=== PATIENT | male | born 1940 | race Caucasian/White ===

== ENCOUNTER 2017-07-04 14:45 | Emergency (ER) | payer MEDICARE, OTHER ==
--- NOTE | 2017-07-04 15:56 | RAD ---
CHEST TWO VIEWS: History: Cough. Comparison: 2006 FINDINGS: Chronic right sided pleural scarring, seen in 2006. Lungs are hyperinflated. No pneumothorax. Mild spondylotic changes of the thoracic spine. IMPRESSION: 1. Hyperinflation suggesting obstructive pulmonary disease. 2. Chronic white matter costophrenic focus scarring. POS: OFF
[2017-07-04 16:14] LABS: #Basophils 0.1 thou/uL (0.0-0.2); #Eosinphils 0.2 thou/uL (0.0-0.7); #Lymphocytes 1.2 thou/uL (1.20-3.40); #Neutrophils 5.6 thou/uL (1.40-6.50); %Basophils 0.6 % (0.0-1.0); %Eosinophils 1.9 % (0.0-10.0); %Lymphocytes 15.4 % (21.0-51.0); %Monocytes 12.7 % (0.0-10.0); Hematocrit 45.1 % (42.0-52.0); Mean Platelet Volume 5.9 fL (7.4-10.4); Red Blood Cell (RBC) Count 4.62 mill/uL (4.70-6.10); White Blood Cell (WBC) Count 8.1 thou/uL (4.8-10.8)
[2017-07-04 16:36] LABS: ALT (SGPT) 10 U/L (8-55); AST (SGOT) 23 U/L (5-34); Alkaline Phosphatase 79 U/L (40-150); Anion Gap 12 mmol/L (10-20); BUN (Urea Nitrogen) 12 mg/dL (8.4-25.7); Bilirubin, Total 0.5 mg/dL (0.2-1.2); Calc. Creatinine Clearance 0 mL/min (70-130); Calcium 9.4 mg/dL (7.8-10.44); Carbon Dioxide 29 mmol/L (23-31); Chloride 98 mmol/L (98-107); Estimated GFR-MDRD 83; Globulin 3.3 g/dL (2.4-3.5); Protein, Total 7.3 g/dL (5.8-8.1)
== END 2017-07-04 17:19 | disposition home or self-care (01) ==
LOC: ERS 14:45
DX: R05 Cough (principal); I10 Essential (primary) hypertension
CPT/HCPCS: 36415; 71020; 80053; 82553; 84484; 85025; 93005

== ENCOUNTER 2018-09-16 21:50 | Inpatient (IN) | payer MEDICARE, OTHER ==
--- NOTE | 2018-09-16 22:34 | RAD ---
RADIOGRAPH RIGHT HIP 2 VIEWS: 09/16/18 at 10:22 p.m. HISTORY: 78-year-old male with traumatic right hip pain due to fall. FINDINGS: There is diffuse, severe osteopenia, obscuring fine bony detail. There is an impacted right subcapita l femoral neck fracture. No dislocation. There is fracture of the right superior pubic ramus with dis placement, of indeterminate age. IMPRESSION: 1. Acute, traumatic, impacted right subcapital femoral neck fracture. 2. Displaced, traumatic, right superior pubic ramus fracture of indeterminate age. POS: [facility]
[2018-09-16 23:12] LABS: #Eosinphils 0.1 thou/uL (0.0-0.7); #Lymphocytes 0.8 thou/uL (1.20-3.40); #Neutrophils 11.6 thou/uL (1.40-6.50); %Basophils 0.2 % (0.0-1.0); %Eosinophils 0.6 % (0.0-10.0); %Lymphocytes 6.2 % (21.0-51.0); %Monocytes 7.5 % (0.0-10.0); %Neutrophils 85.5 % (42.0-75.0); Mean Corpuscular HGB CONC 34.2 g/dL (32.0-36.0); Mean Corpuscular Hemoglobin 32.2 pg (27.0-31.0); Mean Corpuscular Volume 94.1 fL (78.0-98.0); Mean Platelet Volume 6.3 fL (7.4-10.4); Platelet Count 294 thou/uL (130-400); RBC Distribution Width 12.5 % (11.5-14.5); Red Blood Cell (RBC) Count 4.64 mill/uL (4.70-6.10); White Blood Cell (WBC) Count 13.6 thou/uL (4.8-10.8)
[2018-09-16 23:17] LABS: Prothrombin Time 13.5 SEC (12.0-14.7)
--- NOTE | 2018-09-16 23:19 | RAD ---
PORTABLE CHEST: 09/16/18 HISTORY: Fall with injury. Lung scott are clear. Heart and mediastinum unremarkable. The visualized osseous structures appear i ntact. IMPRESSION: No acute abnormality identified. POS: [facility]
[2018-09-16 23:32] LABS: ALT (SGPT) 13 U/L (8-55); AST (SGOT) 24 U/L (5-34); Albumin 4.1 g/dL (3.4-4.8); Alkaline Phosphatase 72 U/L (40-150); Anion Gap 12 mmol/L (10-20); BUN (Urea Nitrogen) 17 mg/dL (8.4-25.7); Bilirubin, Total 0.5 mg/dL (0.2-1.2); Calc. Creatinine Clearance 0 mL/min (70-130); Calcium 9.7 mg/dL (7.8-10.44); Carbon Dioxide 25 mmol/L (23-31); Chloride 100 mmol/L (98-107); Estimated GFR-MDRD 70; Globulin 3.3 g/dL (2.4-3.5); Glucose 119 mg/dL (83-110); Protein, Total 7.4 g/dL (5.8-8.1); Sodium 133 mmol/L (136-145)
[2018-09-17] MEDS ORDERED: Dextrose 5% in Water 1,000 ML IV PRN
[2018-09-17] MEDS ORDERED: hydrALAZINE 20 MG/ML VIAL SLOW IVP PRN
[2018-09-17] MEDS ORDERED: Morphine 2 MG/ML SYRINGE SLOW IVP PRN
[2018-09-17] MEDS ORDERED: Ondansetron ODT 4 MG TAB PO PRN
[2018-09-17] MEDS ORDERED: Dextrose 50% Abboject 50 ML SYRINGE SLOW IVP PRN
[2018-09-17] MEDS ORDERED: Ondansetron PF 4 MG/2 ML Vial IVP PRN
[2018-09-17] MEDS ORDERED: Morphine 2 MG/ML SYRINGE ONE (00:17)
[2018-09-17] MEDS ORDERED: Ondansetron PF 4 MG/2 ML Vial ONE ×2 (00:17)
[2018-09-17 01:30] VITALS: BMI 18.1
[2018-09-17] MEDS: Sodium Chloride 0.9% 1,000 ML IV SCH ×2 (01:47→17:34)
[2018-09-17] MEDS: Acetaminophen 1,000 MG in Premix Bag 1 BAG IVPB SCH ×4 (01:47→20:09)
[2018-09-17] MEDS: traMADol HCl 50 MG TAB PO SCH ×4 (01:48→20:07)
--- NOTE | 2018-09-17 03:58 | HP ---
TRAUMA SURGEON: Dr. Brown. TRAUMA ACTIVATION: Not applicable. HISTORY OF PRESENT ILLNESS: Scott uLi is a 78-year-old male who presented to [facility] status post mechanical fall. Per patient, he was ambulating in his living room when he tripped and fell over the carpet. The patient landed on his right hip and had immediate onset of right hip pain. He denies head trauma or loss of consciousness. He was seen and evaluated in the emergency room, found to have right hip fracture. Orthopedic Surgery was notified and Trauma Service was asked to admit. Upon my evaluation, the patient has a chief complaint of right hip discomfort which worsened with mobilization and improves with rest and pain medications. ALLERGIES: CODEINE. PAST MEDICAL HISTORY: Chronic medical illnesses include hypertension and prostate cancer, status post resection. HOME MEDICATIONS: 1. Amlodipine 10 mg. 2. Aspirin 81 mg. PAST SURGICAL HISTORY: Tonsillectomy, right BKA, left rotator cuff surgery with left elbow surgery, right wrist surgery, prostatectomy. 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 He denies alcohol or illicit drug use. He is a former smoker. FAMILY HISTORY: Denies family history of any chronic medical illnesses. REVIEW OF SYSTEMS: A 10-point review of systems was performed and negative except as indicated in the HPI. PHYSICAL EXAMINATION: VITAL SIGNS: Most recent vital signs include temperature 97.9, pulse 68, respirations 20, O2 saturation 96% on room air, blood pressure 135/83. Pain 5/10. GENERAL: Elderly appearing male, in no acute distress, resting in bed. HEENT: Head; normocephalic, atraumatic. Eyes; pupils are PERRL. Extraocular movements are intact. NECK: Supple. Trachea is midline. CHEST: Atraumatic. Nontender to palpation. Normal work of breathing, symmetric rise. CARDIOVASCULAR: Regular rate and rhythm. No obvious murmurs, rubs, or gallops. GI: Abdomen is atraumatic, soft, nontender, and nondistended. Bowel sounds are positive. MUSCULOSKELETAL: Bilateral upper extremities are within normal limits. Left lower extremity within normal limits. Right lower extremity with BKA. Range of motion limited secondary to pain. NEUROLOGIC: GCS is 15. No focal deficit is noted. LABORATORY FINDINGS: WBC 13.6, hemoglobin 15.0, hematocrit 43.7, platelet count 294. INR is 1.0. Sodium 133, potassium 4.0, chloride 100, carbon dioxide 25, BUN 17, creatinine 1.02. Glucose 119. AST and ALT are within normal limits. EKG with normal sinus rhythm. RADIOGRAPHIC FINDINGS: Hip x-ray with right subcapital femoral neck fracture and right superior rami fracture of indeterminate age. Chest x-ray with hyperinflated lungs, but otherwise no acute cardiopulmonary process. ASSESSMENT: 1. Status post mechanical fall. 2. Right hip fracture. 3. Right pubic rami fracture, indeterminate age. 4. Acute traumatic pain. 5. History of traumatic oprap-ekcp-[id number]. 6. History of hypertension. 7. History of prostate cancer. 8. Hyponatremia, chronic and stable. PLAN: Admit to Trauma Services. Orthopedic Surgery has been notified and plan for likely operative intervention tomorrow. The patient should be n.p.o. after midnight. Pain management with p.o. and IV analgesics. Gentle IV fluid hydration. Postoperative PT and OT. The patient will need inpatient rehab consult. DVT and gastritis prophylaxis as appropriate. Plan for admission was discussed with the patient who vocalized understanding. He is a full code. Trauma attending has been notified of admission. Job ID: [id number]
[2018-09-17 05:55] LABS: #Eosinphils 0.1 thou/uL (0.0-0.7); #Lymphocytes 0.9 thou/uL (1.20-3.40); #Monocytes 1.3 thou/uL (0.11-0.59); #Neutrophils 10.1 thou/uL (1.40-6.50); %Basophils 0.2 % (0.0-1.0); %Eosinophils 0.6 % (0.0-10.0); %Lymphocytes 6.9 % (21.0-51.0); %Monocytes 10.2 % (0.0-10.0); %Neutrophils 82.1 % (42.0-75.0); Hemoglobin 14.3 g/dL (14.0-18.0); Mean Corpuscular HGB CONC 33.4 g/dL (32.0-36.0); Mean Corpuscular Hemoglobin 31.3 pg (27.0-31.0); Mean Corpuscular Volume 93.6 fL (78.0-98.0); Mean Platelet Volume 6.4 fL (7.4-10.4); Platelet Count 284 thou/uL (130-400); RBC Distribution Width 12.5 % (11.5-14.5); Red Blood Cell (RBC) Count 4.56 mill/uL (4.70-6.10); White Blood Cell (WBC) Count 12.3 thou/uL (4.8-10.8)
[2018-09-17 06:15] LABS: Anion Gap 10 mmol/L (10-20); BUN (Urea Nitrogen) 17 mg/dL (8.4-25.7); Calc. Creatinine Clearance 58 mL/min (70-130); Calcium 9.1 mg/dL (7.8-10.44); Carbon Dioxide 25 mmol/L (23-31); Chloride 101 mmol/L (98-107); Estimated GFR-MDRD 82; Glucose 108 mg/dL (83-110); Phosphorus 3.3 mg/dL (2.3-4.7); Sodium 132 mmol/L (136-145)
[2018-09-17] MEDS: Senokot S 8.6-50 MG TAB PO SCH ×2 (08:46→20:08)
[2018-09-17] MEDS: Famotidine 20 MG TAB PO SCH ×2 (08:47→20:09)
--- NOTE | 2018-09-17 09:05 | PRG ---
DATE OF SERVICE: 09/17/2018 SUBJECTIVE: Mr. Lui is seen and examined. Please see Sheela Lucas's full H and P for full details. PLAN: Plans are for operative repair of fracture of hip today by Dr. Archer. Trauma Team will follow. Job ID: [id number]
[2018-09-17] MEDS ORDERED: CEFAZOLIN/Water 2 GM/20 ML SYRINGE SLOW IVP SCH ×2 (09:30→14:30)
[2018-09-17] MEDS ORDERED: CEFAZOLIN 2 GM/50 ML-DEXTROSE 2 GM in Premix Bag 1 BAG IVPB SCH (09:45)
[2018-09-17] MEDS ORDERED: Tranexamic Acid 1,000 MG in Sodium Chloride 0.9% 100 ML IVPB SCH (11:15)
[2018-09-17] MEDS: Polyethylene Glycol 3350 17 GM Packet PO SCH (11:35)
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
[2018-09-17] MEDS ORDERED: Tranexamic Acid 1,000 MG/10 ML VIAL ONE ×2 (12:05→14:36)
[2018-09-17] MEDS ORDERED: CEFAZOLIN 2 GM/50 ML BAG ONE (12:05)
[2018-09-17] MEDS ORDERED: Sodium Chloride 0.9% 100 ML ONE (12:05)
[2018-09-17] MEDS ORDERED: Fentanyl 100 MCG/2 ML VIAL ONE (13:41)
[2018-09-17] MEDS ORDERED: Promethazine HCl 25 MG/ML VIAL SLOW IVP PRN (14:32)
[2018-09-17] MEDS ORDERED: Ondansetron HCl/PF 4 MG/2 ML Vial IVP PRN (14:32)
[2018-09-17] MEDS ORDERED: Promethazine HCl 25 MG/ML VIAL IM PRN (14:32)
--- NOTE | 2018-09-17 15:20 | RAD ---
RADIOGRAPH RIGHT HIP 2 VIEWS: DATE: 09/17/2018. TIME: 2:43 p.m. HISTORY: A 78-year-old male with acute, traumatic, impacted right subcapital femoral neck fracture. COMPARISON: 09/16/2018. FINDINGS: The femoral head and neck have been resected and replaced with metallic prosthesis with stem that charanjit ches the proximal diaphysis. IMPRESSION: Status post right hip replacement arthroplasty. POS: [facility]
--- NOTE | 2018-09-17 15:40 | OP ---
DATE OF PROCEDURE: 09/17/2018 PROCEDURE: Right hip hemiarthroplasty using a [place] Accolade #5 stem with a -4 neck, a 51 mm head. CAREER SERVICES ASSISTANT: Pauline Dale PA-C ESTIMATED BLOOD LOSS: 200. SPECIMENS: None. DRAINS: None. COMPLICATIONS: None. DESCRIPTION OF PROCEDURE: The patient was placed in lateral decubitus position. Hip was prepped and draped in usual sterile fashion. We made an oblique incision in the greater trochanter. Dissection was carried down to the IT band, which was divided distally extended proximally. Self-retraining retractors were placed in the wound. Anterior one-third abductor mechanism was taken down using Bovie electrocautery. Hip capsule was incised. The femoral neck was cut and the femoral head was extracted and sized. The acetabulum was explored for loose bodies and loose bodies were removed. The acetabulum was irrigated. The femur was broached up to the appropriate size and appropriate size stem was impacted into place, along with the appropriate head. Hip was reduced without difficulty. Capsule was repaired with #2 Vicryl. Abductor was repaired with #2 Vicryl and #5 Ethibond. IT band was repaired with 2-0 Vicryl, #2 Quill, subcu closed with 0 Quill, skin was closed with 2-0 Monoderm and skin glue was applied. Job ID: [id number]
[2018-09-17] MEDS: traMADol HCl 50 MG TAB PO PRN (17:35)
[2018-09-17] MEDS: CEFAZOLIN 2 GM/50 ML-DEXTROSE 2 GM in Premix Bag 1 BAG IVPB SCH (20:10)
[2018-09-17] MEDS ORDERED: ePHEDrine/0.9% NaCl/PF SYRINGE 50 mg/10 ml ONE (22:22)
[2018-09-17] MEDS ORDERED: PROPOFOL 200 MG/20 ML VIAL ONE (22:22)
[2018-09-17] MEDS ORDERED: Glycopyrrolate 0.2 MG/ML 5 ML SYRINGE ONE (22:22)
[2018-09-17] MEDS ORDERED: Lidocaine 1% PF 5 ML VIAL ONE (22:22)
[2018-09-18] MEDS: traMADol HCl 50 MG TAB PO SCH ×4 (02:44→20:09)
[2018-09-18] MEDS: Acetaminophen 1,000 MG in Premix Bag 1 BAG IVPB SCH (02:46)
[2018-09-18] MEDS: Sodium Chloride 0.9% 1,000 ML IV SCH ×2 (02:46→08:08)
[2018-09-18] MEDS: traMADol HCl 50 MG TAB PO PRN (04:12)
[2018-09-18] MEDS: CEFAZOLIN 2 GM/50 ML-DEXTROSE 2 GM in Premix Bag 1 BAG IVPB SCH (04:16)
[2018-09-18] MEDS: Ketorolac Tromethamine 30 MG/ML VIAL IVP SCH ×4 (05:11→23:13)
[2018-09-18 06:41] LABS: #Lymphocytes 0.5 thou/uL (1.20-3.40); #Monocytes 1.2 thou/uL (0.11-0.59); #Neutrophils 12.2 thou/uL (1.40-6.50); %Basophils 0.2 % (0.0-1.0); %Eosinophils 0.2 % (0.0-10.0); %Lymphocytes 3.4 % (21.0-51.0); %Monocytes 8.9 % (0.0-10.0); %Neutrophils 87.3 % (42.0-75.0); Hemoglobin 13.2 g/dL (14.0-18.0); Mean Corpuscular HGB CONC 33.9 g/dL (32.0-36.0); Mean Corpuscular Hemoglobin 31.9 pg (27.0-31.0); Mean Corpuscular Volume 94.1 fL (78.0-98.0); Mean Platelet Volume 6.7 fL (7.4-10.4); Platelet Count 240 thou/uL (130-400); RBC Distribution Width 12.4 % (11.5-14.5); Red Blood Cell (RBC) Count 4.13 mill/uL (4.70-6.10); White Blood Cell (WBC) Count 13.9 thou/uL (4.8-10.8)
[2018-09-18 07:22] LABS: Anion Gap 10 mmol/L (10-20); BUN (Urea Nitrogen) 12 mg/dL (8.4-25.7); Calc. Creatinine Clearance 63 mL/min (70-130); Calcium 8.5 mg/dL (7.8-10.44); Carbon Dioxide 22 mmol/L (23-31); Chloride 96 mmol/L (98-107); Estimated GFR-MDRD Greater than 90; Glucose 121 mg/dL (83-110); Magnesium 1.5 mg/dL (1.6-2.6); Phosphorus 2.2 mg/dL (2.3-4.7); Potassium 3.3 mmol/L (3.5-5.1); Sodium 125 mmol/L (136-145)
[2018-09-18] MEDS ORDERED: Magnesium Sulfate 4 GM in Sodium Chloride 0.9% 250 ML 250 ML IVPB SCH (08:00)
[2018-09-18] MEDS ORDERED: Potassium Phosphate 30 MMOL in Sodium Chloride 0.9% 250 ML 250 ML IVPB SCH (08:00)
[2018-09-18] MEDS: Polyethylene Glycol 3350 17 GM Packet PO SCH (08:08)
[2018-09-18] MEDS: Senokot S 8.6-50 MG TAB PO SCH ×2 (08:08→20:09)
[2018-09-18] MEDS: Famotidine 20 MG TAB PO SCH ×2 (08:09→20:09)
[2018-09-18] MEDS: Amlodipine 10 MG TAB PO SCH (09:01)
[2018-09-18] MEDS: Aspirin 81 mg Enteric Coated Tablet PO SCH ×2 (09:07→20:08)
--- NOTE | 2018-09-18 15:37 | PRG ---
DATE OF SERVICE: 09/18/2018 SUBJECTIVE: The patient is hospital day #2, postop day #1, status post fall in which he sustained a right hip fracture. The patient yesterday underwent open reduction and internal fixation of his hip fracture, which he tolerated well. This morning, he has not yet started working with physical therapy, but he states his pain is controlled, and he is tolerating a diet. PHYSICAL EXAMINATION: VITAL SIGNS: Temperature is 98.0, heart rate 80, blood pressure 161/80, respirations 20, and oxygen saturation 94% on room air. GENERAL: The patient is resting comfortably in bed. He is awake, alert, and oriented x3. [place] Coma Scale is 15. HEENT: Unremarkable. LUNGS: Clear to auscultation with good inspiratory and expiratory effort. HEART: Regular rate and rhythm. ABDOMEN: Soft, flat, and nontender with active bowel sounds. Postop dressing is clean, dry, and intact. EXTREMITIES: Neurovascularly intact. Of note, the patient has [id number] amputation on his right side also. LABORATORY FINDINGS: White blood cell count 13.9, hemoglobin 13.2, hematocrit 38.9, and platelets 240. Sodium 125, potassium 3.3, chloride 96, CO2 of 22, BUN 12, creatinine 0.82, glucose 121, phosphorus 2.2, magnesium 1.5. There are no radiographs reviewed this morning. ASSESSMENT AND PLAN: 1. Status post fall. 2. Status post open reduction and internal fixation of right hip fracture. Plan will be to continue supportive care. Physical and occupational therapy and discuss placement to rehab. Evaluation and examination were done with Dr. Brown during rounds this morning. Job ID: [id number]
[2018-09-19] MEDS: Sodium Chloride 0.9% 1,000 ML IV SCH (01:19)
[2018-09-19] MEDS: traMADol HCl 50 MG TAB PO SCH ×2 (01:19→08:01)
[2018-09-19] MEDS: Ketorolac Tromethamine 30 MG/ML VIAL IVP SCH ×2 (05:19→12:00)
[2018-09-19] MEDS: Aspirin 81 mg Enteric Coated Tablet PO SCH (08:00)
[2018-09-19] MEDS: Senokot S 8.6-50 MG TAB PO SCH (08:00)
[2018-09-19] MEDS: Famotidine 20 MG TAB PO SCH (08:00)
[2018-09-19] MEDS: Amlodipine 10 MG TAB PO SCH (08:00)
[2018-09-19] MEDS: Polyethylene Glycol 3350 17 GM Packet PO SCH (08:01)
[2018-09-19] MEDS ORDERED: Milk Of Magnesia 30 ML UDCUP PO SCH (09:00)
[2018-09-19] MEDS ORDERED: Bisacodyl 10 MG SUPP PR SCH (09:30)
[2018-09-19 13:02] VITALS: BP 144/75; TEMP 97.6
--- NOTE | 2018-09-20 02:53 | DIS ---
DATE OF ADMISSION: 09/16/2018 DATE OF DISCHARGE: 09/19/2018 ADMISSION DIAGNOSES: 1. Status post ground level fall. 2. Right hip fracture. 3. History of traumatic right lower extremity amputation. CONSULTATIONS: Orthopedics, Dr. Archer. PROCEDURES: Right hip hemiarthroplasty. SUMMARY: The patient is a 78-year-old man who has a history of having an amputation to his right lower extremity, who lost his balance and fell, landing on his right side, specifically his hip. He was brought to the emergency department, underwent evaluation and examination, was noted to have the above injuries. He was taken to the operating room and underwent the above procedure which he tolerated well. The patient would postoperatively be working with Physical and Occupational Therapy. At the time of discharge to the rehab center, he was tolerating a diet. Pain was controlled and was progressing with physical therapy. He will follow up with Dr. Archer in 2-3 weeks or sooner as needed. He may follow up with the Trauma Clinic as needed. Job ID: [id number]
== END 2018-09-19 13:45 | DRG 470 ==
LOC: ERS 21:50 → SURG A 22:50
PROVIDERS: ADMIT Surgery; ATTEND Surgery
PROC: 0SRR0JA Replacement of Right Hip Joint, Femoral Surface with Synthetic Substitute, Uncemented, Open Approach (ICD-10-PCS; principal; 2018-09-17)
DX: S72.011A Unspecified intracapsular fracture of right femur, initial encounter for closed fracture (principal); E87.1 Hypo-osmolality and hyponatremia; I10 Essential (primary) hypertension; G89.11 Acute pain due to trauma; Z85.46 Personal history of malignant neoplasm of prostate; Z87.891 Personal history of nicotine dependence; Z79.82 Long term (current) use of aspirin; Z79.899 Other long term (current) drug therapy; Z89.511 Acquired absence of right leg below knee; W01.0XXA Fall on same level from slipping, tripping and stumbling without subsequent striking against object, initial encounter; Y92.018 Other place in single-family (private) house as the place of occurrence of the external cause
CPT/HCPCS: 36415; 71045; 80048; 80053; 83735; 84100; 84484; 85025; 85610; 86850; 86900; 86901; 93005; 96374; 96375; G0390; G8978-GP-CL; G8979-GP-CJ; G8987-GO-CL; G8988-GO-CJ; J0131; J1885; J2001; J2270; J2405; J2704; J3010; J3475; J7050

== ENCOUNTER 2019-08-21 18:14 | Emergency (ER) | payer MEDICARE, OTHER ==
[2019-08-21 18:51] LABS: #Basophils 0.1 thou/uL (0.0-0.2); #Eosinphils 0.1 thou/uL (0.0-0.7); #Lymphocytes 1.3 thou/uL (1.20-3.40); #Monocytes 1.2 thou/uL (0.11-0.59); #Neutrophils 6.5 thou/uL (1.40-6.50); %Basophils 0.7 % (0.0-1.0); %Eosinophils 1.1 % (0.0-10.0); %Lymphocytes 14.2 % (21.0-51.0); %Monocytes 13.1 % (0.0-10.0); %Neutrophils 70.9 % (42.0-75.0); Hemoglobin 14.8 g/dL (14.0-18.0); Mean Corpuscular HGB CONC 33.2 g/dL (32.0-36.0); Mean Corpuscular Hemoglobin 30.9 pg (27.0-31.0); Mean Corpuscular Volume 93.2 fL (78.0-98.0); Platelet Count 353 thou/uL (130-400); RBC Distribution Width 12.2 % (11.5-14.5); White Blood Cell (WBC) Count 9.2 thou/uL (4.8-10.8)
--- NOTE | 2019-08-21 18:55 | CT ---
CT BRAIN NONCONTRAST: DATE: 08/21/2019 HISTORY: 79-year-old male with acute stroke symptoms: Dysarthria. Dr. Posadas called the level 2 stroke alert report by telephone to Dr. Mendieta at 6:51 PM on 08/21/2019 FINDINGS: There is no evidence of acute intra-axial or extra-axial hemorrhage. There is no midline shift or any other mass effect. There is no extra-axial fluid collection. There is no evidence of obstructive hydrocephalus. Calvarium is intact. There is diffuse brain parenchymal volume loss. There are low att enuation areas in the white matter. These are nonspecific, but in a patient of this age, they are probably chronic ischemic white matter changes due to microvascular atherosclerosis. Small round old lacunar infarction in right thalamus. Additional tiny punctate hypodensities in bilateral thalami and bilateral basal ganglia may represent additional tiny old lacunar infarctions. IMPRESSION: 1) No acute intracranial findings. 2) involutional changes and chronic ischemic white matter changes. 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 4) probable multiple additional tiny old lacunar infarctions in bilateral deep pederson nuclei.
[2019-08-21 18:57] LABS: PTT 27.4 SEC (22.9-36.1); Prothrombin Time 13.1 SEC (12.0-14.7)
[2019-08-21 19:05] LABS: ALT (SGPT) 15 U/L (8-55); AST (SGOT) 24 U/L (5-34); Albumin 4.4 g/dL (3.4-4.8); Alkaline Phosphatase 81 U/L (40-110); Anion Gap 9 mmol/L (10-20); BUN (Urea Nitrogen) 13 mg/dL (8.4-25.7); Bilirubin, Total 0.7 mg/dL (0.2-1.2); CK (CPK) 72 U/L (30-200); Calc. Creatinine Clearance 0 mL/min (70-130); Calcium 9.7 mg/dL (7.8-10.44); Carbon Dioxide 30 mmol/L (23-31); Chloride 96 mmol/L (98-107); Estimated GFR-MDRD 83; Globulin 3.6 g/dL (2.4-3.5); Glucose 95 mg/dL (83-110); Potassium 3.8 mmol/L (3.5-5.1); Sodium 131 mmol/L (136-145)
[2019-08-22] MEDS ORDERED: Aspirin Chewable 81 MG TAB ONE (00:10)
== END 2019-08-22 03:08 | disposition short-term general hospital (02) ==
LOC: ERS 18:14
DX: R47.01 Aphasia (principal); Z79.899 Other long term (current) drug therapy
CPT/HCPCS: 70450; 80053; 82550; 84484; 85025; 85610; 85730

== ENCOUNTER 2021-04-14 23:28 | Inpatient (IN) | payer MEDICARE, OTHER ==
[~2021-04-14 23:28] MED LIST: Iopamidol-370 76% 500 ML 1 ML ONE
[2021-04-14] MEDS ORDERED: Midazolam HCl 2 mg/2 ml Vial ONE ×3 (23:30→23:47)
[2021-04-14 23:40] LABS: #Basophils 0.1 thou/uL (0.0-0.2); #Eosinphils 0.2 thou/uL (0.0-0.7); #Lymphocytes 2.4 thou/uL (1.20-3.40); #Monocytes 1.1 thou/uL (0.11-0.59); #Neutrophils 6.2 thou/uL (1.40-6.50); %Basophils 0.8 % (0.0-1.0); %Eosinophils 2.4 % (0.0-10.0); %Lymphocytes 24.1 % (21.0-51.0); %Monocytes 10.7 % (0.0-10.0); Hemoglobin 15.6 g/dL (14.0-18.0); Mean Corpuscular HGB CONC 34.4 g/dL (32.0-36.0); Mean Corpuscular Hemoglobin 32.9 pg (27.0-31.0); Mean Corpuscular Volume 95.5 fL (78.0-98.0); Mean Platelet Volume 6.2 fL (7.4-10.4); Platelet Count 339 thou/uL (130-400); RBC Distribution Width 12.5 % (11.5-14.5); Red Blood Cell (RBC) Count 4.75 mill/uL (4.70-6.10); White Blood Cell (WBC) Count 10.1 thou/uL (4.8-10.8)
[2021-04-14 23:52] LABS: Prothrombin Time 13.1 sec (12.0-14.7)
[2021-04-14 23:53] LABS: PTT 25.6 sec (22.9-36.1)
[2021-04-14 23:56] LABS: ALT (SGPT) 15 U/L (8-55); AST (SGOT) 25 U/L (5-34); Albumin 4.4 g/dL (3.4-4.8); Alkaline Phosphatase 110 U/L (40-110); Anion Gap 14 mmol/L (10-20); BUN (Urea Nitrogen) 8 mg/dL (8.4-25.7); Bilirubin, Total 0.8 mg/dL (0.2-1.2); CK (CPK) 76 U/L (30-200); Calc. Creatinine Clearance 0 mL/min (70-130); Calcium 9.5 mg/dL (7.8-10.44); Carbon Dioxide 25 mmol/L (23-31); Chloride 99 mmol/L (98-107); Globulin 3.4 g/dL (2.4-3.5); Glucose 124 mg/dL (83-110); Potassium 3.7 mmol/L (3.5-5.1); Protein, Total 7.8 g/dL (5.8-8.1); Sodium 134 mmol/L (136-145)
[2021-04-15] MEDS ORDERED: Labetalol HCl 100 MG/20 ML VIAL ONE (00:23)
[2021-04-15] MEDS ORDERED: Lorazepam 2 MG/ML VIAL ONE ×3 (00:28→01:07)
[2021-04-15 01:04] LABS: Bilirubin Negative (Negative); Blood, Urine Negative (Negative); Clarity Clear (Clear); Glucose, Urine (Dipstick) Normal (Negative); Ketone, Urine Negative (Negative); Leukocyte Negative Leu/uL (Negative); Nitrite Negative (Negative); Protein, Urine (Dipstick) Negative (Neg-Trace); Specific Gravity, Urine 1.007 (1.002-1.036); Urobilinogen Normal mg/dL (Less than 2)
[2021-04-15 01:16] LABS: Amphetamine Not Detected (NotDetected); Barbiturates Screen Not Detected (NotDetected); Benzodiazepine Screen Not Detected (NotDetected); Cocaine Metabolite Screen Not Detected (NotDetected); Medtox Control Line Valid? VALID (VALID); Medtox Reader # READER 4; Methadone Not Detected (NotDetected); Methamphetamine Not Detected (NotDetected); Opiate Screen Not Detected (NotDetected); Oxycodone Screen Not Detected (NotDetected); Phencyclidine (PCP) Not Detected (NotDetected); THC/Cannabinoid Screen Not Detected (NotDetected); Tricyclic Screen Not Detected (NotDetected)
[2021-04-15] MEDS ORDERED: Ondansetron PF 4 MG/2 ML Vial IVP PRN (02:26)
[2021-04-15] MEDS ORDERED: Acetaminophen 325 MG TAB PO PRN (02:26)
[2021-04-15] MEDS ORDERED: hydrALAZINE 20 MG/ML VIAL SLOW IVP PRN (02:26)
[2021-04-15] MEDS ORDERED: Communication Order-Pharmacy FS SCH (02:26)
[2021-04-15] MEDS ORDERED: Labetalol HCl 100 MG/20 ML VIAL SLOW IVP PRN (02:26)
[2021-04-15 02:27] LABS: SARS-CoV-2 NAA Rapid Test Not Detected (NotDetected)
[2021-04-15] MEDS: Sodium Chloride 0.9% 1,000 ML IV SCH ×2 (04:26→16:55)
[2021-04-15 06:33] LABS: Troponin I 0.022 ng/mL (< 0.028)
[2021-04-15] MEDS: Famotidine/PF 20 mg/2ml Vial SLOW IVP SCH ×2 (08:05→20:07)
[2021-04-16] MEDS: Sodium Chloride 0.9% 1,000 ML IV SCH ×2 (04:50→15:49)
[2021-04-16] MEDS: Atorvastatin Calcium 40 MG TAB PO SCH (09:09)
[2021-04-16] MEDS: Calcium Carbonate 600 MG + Vit D TAB PO SCH (09:09)
[2021-04-16] MEDS: Famotidine/PF 20 mg/2ml Vial SLOW IVP SCH ×2 (09:10→21:02)
[2021-04-16 09:27] LABS: #Eosinphils 0.2 thou/uL (0.0-0.7); #Lymphocytes 1.1 thou/uL (1.20-3.40); #Monocytes 1.4 thou/uL (0.11-0.59); #Neutrophils 7.4 thou/uL (1.40-6.50); %Basophils 0.5 % (0.0-1.0); %Eosinophils 1.8 % (0.0-10.0); %Lymphocytes 11.1 % (21.0-51.0); %Monocytes 13.5 % (0.0-10.0); %Neutrophils 73.1 % (42.0-75.0); Hemoglobin 13.6 g/dL (14.0-18.0); Mean Corpuscular HGB CONC 33.2 g/dL (32.0-36.0); Mean Corpuscular Hemoglobin 31.7 pg (27.0-31.0); Mean Corpuscular Volume 95.4 fL (78.0-98.0); Mean Platelet Volume 6.5 fL (7.4-10.4); Platelet Count 289 thou/uL (130-400); RBC Distribution Width 12.7 % (11.5-14.5); White Blood Cell (WBC) Count 10.1 thou/uL (4.8-10.8)
[2021-04-16 09:34] LABS: Hemoglobin A1c 5.2 % (4.0-6.0)
[2021-04-16 09:41] LABS: Anion Gap 9 mmol/L (10-20); BUN (Urea Nitrogen) 11 mg/dL (8.4-25.7); Calc. Creatinine Clearance 57 mL/min (70-130); Calcium 8.9 mg/dL (7.8-10.44); Carbon Dioxide 24 mmol/L (23-31); Cardiac Risk 2.5 (Less than 4.5); Chloride 103 mmol/L (98-107); Cholesterol 94 mg/dl (< 200 Desired); Glucose 85 mg/dL (83-110); HDL Cholesterol 37 mg/dL (>60 Neg Risk); LDL Cholesterol, Calculated 47 mg/dL; Potassium 3.3 mmol/L (3.5-5.1); Sodium 133 mmol/L (136-145); Triglycerides 49 mg/dL (Less than 150)
[2021-04-16] MEDS ORDERED: Aspirin 325 MG TAB PO SCH (18:00)
[2021-04-17 03:55] LABS: #Eosinphils 0.1 thou/uL (0.0-0.7); #Lymphocytes 1.2 thou/uL (1.20-3.40); #Monocytes 1.1 thou/uL (0.11-0.59); #Neutrophils 7.8 thou/uL (1.40-6.50); %Basophils 0.4 % (0.0-1.0); %Eosinophils 1.1 % (0.0-10.0); %Lymphocytes 11.7 % (21.0-51.0); %Monocytes 11.1 % (0.0-10.0); %Neutrophils 75.8 % (42.0-75.0); Hemoglobin 13.4 g/dL (14.0-18.0); Mean Corpuscular HGB CONC 34.2 g/dL (32.0-36.0); Mean Corpuscular Hemoglobin 32.5 pg (27.0-31.0); Mean Corpuscular Volume 94.9 fL (78.0-98.0); Mean Platelet Volume 6.6 fL (7.4-10.4); Platelet Count 278 thou/uL (130-400); RBC Distribution Width 12.5 % (11.5-14.5); Red Blood Cell (RBC) Count 4.13 mill/uL (4.70-6.10); White Blood Cell (WBC) Count 10.3 thou/uL (4.8-10.8)
[2021-04-17 04:06] LABS: Anion Gap 14 mmol/L (10-20); BUN (Urea Nitrogen) 10 mg/dL (8.4-25.7); Calc. Creatinine Clearance 63 mL/min (70-130); Calcium 8.6 mg/dL (7.8-10.44); Carbon Dioxide 21 mmol/L (23-31); Chloride 102 mmol/L (98-107); Glucose 81 mg/dL (83-110); Potassium 3.3 mmol/L (3.5-5.1); Sodium 134 mmol/L (136-145)
[2021-04-17] MEDS: Sodium Chloride 0.9% 1,000 ML IV SCH ×2 (05:12→20:20)
[2021-04-17] MEDS: Calcium Carbonate 600 MG + Vit D TAB PO SCH (09:02)
[2021-04-17] MEDS: Aspirin 325 MG TAB PO SCH (09:02)
[2021-04-17] MEDS: Atorvastatin Calcium 40 MG TAB PO SCH (09:02)
[2021-04-17] MEDS: Famotidine/PF 20 mg/2ml Vial SLOW IVP SCH ×2 (09:02→20:20)
[2021-04-18 03:50] VITALS: BMI 17.6
[2021-04-18] MEDS: Famotidine/PF 20 mg/2ml Vial SLOW IVP SCH (07:40)
[2021-04-18] MEDS: Atorvastatin Calcium 40 MG TAB PO SCH (07:40)
[2021-04-18] MEDS: Calcium Carbonate 600 MG + Vit D TAB PO SCH (07:40)
[2021-04-18] MEDS: Aspirin 325 MG TAB PO SCH (07:40)
[2021-04-18 11:35] VITALS: BP 148/92; TEMP 98
[2021-04-18] MEDS: Sodium Chloride 0.9% 1,000 ML IV SCH (11:55)
[2021-04-18] MEDS ORDERED: Potassium Chloride 20 MEQ TAB PO SCH (13:00)
[2021-04-18] MEDS ORDERED: Amlodipine 5 MG TAB PO SCH (13:45)
[2021-04-19] MEDS ORDERED: Amlodipine 5 MG TAB PO SCH (09:00)
[2021-04-19] MEDS ORDERED: Aspirin 81 mg Enteric Coated Tablet PO SCH (09:00)
== END 2021-04-18 16:09 | DRG 62 ==
LOC: ERS 23:28 → CCU 04-15 01:39 → 2SE 04-17 18:03
PROVIDERS: ADMIT Internal Medicine; ATTEND Internal Medicine
DX: G45.9 Transient cerebral ischemic attack, unspecified (principal); G93.49 Other encephalopathy; Z20.822 Contact with and (suspected) exposure to COVID-19; I35.1 Nonrheumatic aortic (valve) insufficiency; I65.03 Occlusion and stenosis of bilateral vertebral arteries; E78.5 Hyperlipidemia, unspecified; I10 Essential (primary) hypertension; Z96.641 Presence of right artificial hip joint; E87.6 Hypokalemia; D64.9 Anemia, unspecified; Z79.899 Other long term (current) drug therapy; Z79.82 Long term (current) use of aspirin; I69.920 Aphasia following unspecified cerebrovascular disease; Z89.611 Acquired absence of right leg above knee; Z88.5 Allergy status to narcotic agent; Z85.46 Personal history of malignant neoplasm of prostate; Z90.79 Acquired absence of other genital organ(s)
CPT/HCPCS: 0240U; 36415; 51702; 70450; 70496; 70498; 70551; 71045; 80048; 80053; 80061; 80306; 80307; 81003; 82140; 82550; 83036; 84484; 85025; 85610; 85730; 93005; 93306; 95712; 95816; 95819; 95957; 96365; 96375; 96376; 99292; J2060; J2250; J2997; Q9967; S0028